=== PATIENT | female | born 1960 | race Caucasian/White ===

== ENCOUNTER → 2016-04-16 | Outpatient (CLI) | payer OTHER ==
--- NOTE | 2016-04-16 11:44 | MR ---
MRI of the Right Knee Clinical Indications: Anterior knee pain. Prior surgical removal of the patella with anterior knee a rthroplasty. Technique: Fat-suppressed, fast T2-weighted images were acquired axially, sagittally, and coronally. T1-weighted sagittal images were obtained. Comparison examination: June 14, 2015. Findings: Again demonstrated are surgical changes of a patellectomy me with anastomosis of the quadr iceps to the patellar tendon. There is been progressive maturation of the anastomosis from prior stud y, with increasing deposition of fibrous tissue and decreasing edema. Metallic artifact from anterior right knee arthroplasty is identified, unchanged. There is a moderate right knee joint effusion. Medial compartment: Again demonstrated are features of advanced osteoarthritis with diffuse grade IV chondral loss. There is decreasing bone marrow edema from prior study along the weightbearing aspect of the medial femoral condyle. However, there is a small new subchondral cysts along the posterior we ightbearing aspect of the medial femoral condyle, compatible with advanced chondral disease (image 7 series 7). The medial meniscus remains subluxed medially without linear tear. Lateral compartment: Negative. Abnormal marrow signal intensity within the medullary space of the distal femur is again compatible w ith AVN, unchanged. IMPRESSION: 1. Status post surgical removal of the patella with progressive healing and maturation of the anastom osis of the quadriceps with the patellar tendon. 2. Prior anterior knee arthroplasty. 3. Moderate knee joint effusion, stable. 4. Advanced osteoarthritis, medial compartment, with decrease in bone marrow edema. A new small subch ondral cyst involves the posterior weightbearing aspect of the medial femoral condyle. 5. Features of AVN within the distal right femur, stable.
== END ==
LOC: FIMAGING 10:06
PROVIDERS: ATTEND Orthopaedic Surgery
DX: M25.561 Pain in right knee (principal); M17.11 Unilateral primary osteoarthritis, right knee; M25.461 Effusion, right knee

== ENCOUNTER → 2016-07-20 | Outpatient (CLI) | payer OTHER | LOC: FIMAGING 08:40 | PROVIDERS: ATTEND Internal Medicine | DX: R16.1 Splenomegaly, not elsewhere classified (principal) ==

== ENCOUNTER → 2016-08-01 | Outpatient (CLI) | payer OTHER | LOC: FIMAGING 15:31 | PROVIDERS: ATTEND Internal Medicine | DX: Z12.31 Encounter for screening mammogram for malignant neoplasm of breast (principal) | CPT/HCPCS: G0202 ==

== ENCOUNTER → 2017-06-14 | Outpatient (CLI) | payer OTHER | LOC: FIMAGING 09:00 | PROVIDERS: ATTEND Internal Medicine Hematology & Oncology | DX: R10.12 Left upper quadrant pain (principal) ==

== ENCOUNTER → 2017-11-28 | Outpatient (CLI) | payer OTHER | LOC: BMCIMAGING 14:55 | PROVIDERS: ATTEND Internal Medicine | DX: Z12.31 Encounter for screening mammogram for malignant neoplasm of breast (principal) ==